=== PATIENT | female | born 1945 | race Caucasian/White ===

== ENCOUNTER 2019-05-29 11:17 | Outpatient (CLI) | payer MEDICARE ==
--- NOTE | 2019-05-29 11:44 | RAD ---
Radiograph left elbow 4 views: DATE: 05/29/2019 HISTORY: 74-year-old female with ICD-10: S 50.0 2XA, contusion of left elbow, interstitial encounter. FINDINGS: Diffuse osteopenia. Positive anterior and posterior fat pad signs. No dislocation. No high-grade DJD. No displaced fracture identified. IMPRESSION: 1. No fracture identified, but distention of the joint capsule raises the possibility of occult fract ure. Consider noncontrast CT of elbow. 2. Osteopenia. 3. No other osseous abnormality identified.
== END 2019-05-29 11:18 | disposition home or self-care (01) ==
LOC: BURRAD 11:17
PROVIDERS: ATTEND Nurse Practitioner
DX: S50.02XA Contusion of left elbow, initial encounter (principal); M85.822 Other specified disorders of bone density and structure, left upper arm

== ENCOUNTER 2020-04-27 16:32 | Emergency (ER) | payer MEDICARE ==
[2020-04-27 17:23] LABS: #Lymphocytes 1.8 thou/uL (1.20-3.40); #Monocytes 0.4 thou/uL (0.11-0.59); %Basophils 0.7 % (0.0-1.0); %Eosinophils 0.6 % (0.0-10.0); %Lymphocytes 24.1 % (21.0-51.0); %Monocytes 5.7 % (0.0-10.0); %Neutrophils 68.9 % (42.0-75.0); Hemoglobin 12.6 g/dL (12.0-16.0); Mean Corpuscular HGB CONC 30.7 g/dL (32.0-36.0); Mean Corpuscular Hemoglobin 26.9 pg (27.0-31.0); Mean Corpuscular Volume 87.7 fL (78.0-98.0); Mean Platelet Volume 6.5 fL (7.4-10.4); Platelet Count 230 thou/uL (130-400); RBC Distribution Width 12.9 % (11.5-14.5); Red Blood Cell (RBC) Count 4.69 mill/uL (4.20-5.40); White Blood Cell (WBC) Count 7.2 thou/uL (4.8-10.8)
[2020-04-27] MEDS ORDERED: Amlodipine 5 MG TAB ONE (17:31)
[2020-04-27] MEDS ORDERED: Lisinopril 20 MG TAB ONE (17:31)
[2020-04-27 17:36] LABS: ALT (SGPT) 12 U/L (8-55); AST (SGOT) 11 U/L (5-34); Albumin 4.3 g/dL (3.4-4.8); Alkaline Phosphatase 67 U/L (40-110); Anion Gap 16 mmol/L (10-20); BUN (Urea Nitrogen) 14 mg/dL (9.8-20.1); Bilirubin, Total 0.6 mg/dL (0.2-1.2); Calc. Creatinine Clearance 0 mL/min (70-130); Calcium 9.5 mg/dL (7.8-10.44); Carbon Dioxide 22 mmol/L (23-31); Chloride 107 mmol/L (98-107); Estimated GFR-MDRD 57; Globulin 3.3 g/dL (2.4-3.5); Glucose 96 mg/dL (83-110); Potassium 3.8 mmol/L (3.5-5.1); Protein, Total 7.6 g/dL (6.0-8.3); Sodium 141 mmol/L (136-145)
[2020-04-27] MEDS ORDERED: Amlodipine 5 MG TAB PO SCH (17:45)
--- NOTE | 2020-04-28 04:56 | RAD ---
LEFT LEG TWO VIEWS: 04/27/20 FINDINGS: No fracture or periosteal reaction is seen. No bony destructive lesion is apparent. IMPRESSION: No significant findings. POS: HOME
== END 2020-04-27 18:40 | disposition home or self-care (01) ==
LOC: BURERS 16:32
DX: I10 Essential (primary) hypertension (principal); M79.662 Pain in left lower leg
CPT/HCPCS: 36415; 80053; 84484; 85025

== ENCOUNTER 2020-05-19 01:07 | Emergency (ER) | payer MEDICARE ==
[2020-05-19 01:00] LABS: ALT (SGPT) 12 U/L (8-55); AST (SGOT) 10 U/L (5-34); Albumin 4.7 g/dL (3.4-4.8); Alkaline Phosphatase 65 U/L (40-110); Anion Gap 18 mmol/L (10-20); BUN (Urea Nitrogen) 71 mg/dL (9.8-20.1); Bilirubin, Total 0.5 mg/dL (0.2-1.2); Calc. Creatinine Clearance 0 mL/min (70-130); Calcium 10.4 mg/dL (7.8-10.44); Carbon Dioxide 22 mmol/L (23-31); Chloride 102 mmol/L (98-107); Estimated GFR-MDRD 24; Globulin 3.7 g/dL (2.4-3.5); Glucose 162 mg/dL (83-110); Lipase 51 U/L (8-78); Potassium 4.3 mmol/L (3.5-5.1); Protein, Total 8.4 g/dL (6.0-8.3); Sodium 138 mmol/L (136-145)
[2020-05-19 01:19] LABS: Bilirubin Negative (Negative); Blood, Urine Trace (Negative); Clarity Cloudy (Clear); Glucose, Urine (Dipstick) Negative (Negative); Ketone, Urine Trace mg/dL (Negative); Leukocyte Large (Negative); Nitrite Negative (Negative); Protein, Urine (Dipstick) Negative (Neg-Trace); Specific Gravity, Urine 1.025 (1.005-1.030); Urobilinogen 0.2 mg/dL (Less than 2)
[2020-05-19 01:23] LABS: Bacteria/HPF 4+ HPF (None Seen); Squamous Epithelial 0-3 HPF (0-3); WBC/HPF 21-50 HPF (0-3)
[2020-05-19] MEDS ORDERED: Aspirin Chewable 81 MG TAB ONE (01:38)
[2020-05-19 01:48] LABS: #Basophils 0.1 thou/uL (0.0-0.2); #Monocytes 0.5 thou/uL (0.11-0.59); #Neutrophils 9.3 thou/uL (1.40-6.50); %Basophils 0.5 % (0.0-1.0); %Eosinophils 0.2 % (0.0-10.0); %Lymphocytes 9.6 % (21.0-51.0); %Monocytes 4.1 % (0.0-10.0); %Neutrophils 85.6 % (42.0-75.0); Hemoglobin 13.4 g/dL (12.0-16.0); Mean Corpuscular HGB CONC 31.7 g/dL (32.0-36.0); Mean Corpuscular Hemoglobin 27.4 pg (27.0-31.0); Mean Corpuscular Volume 86.4 fL (78.0-98.0); Mean Platelet Volume 7.8 fL (7.4-10.4); Platelet Count 237 thou/uL (130-400); RBC Distribution Width 13.4 % (11.5-14.5); Red Blood Cell (RBC) Count 4.89 mill/uL (4.20-5.40); White Blood Cell (WBC) Count 10.8 thou/uL (4.8-10.8)
[2020-05-19] MEDS ORDERED: Nitrofurantoin Monohyd/M-Cryst 100 MG CAP ONE (02:28)
[2020-05-19 03:32] LABS: Troponin I 0.019 ng/mL (< 0.028)
[2020-05-19 03:43] LABS: CKMB 2.4 ng/mL (0-6.6)
--- NOTE | 2020-05-19 11:53 | RAD ---
AP PORTABLE CHEST: 05/19/20 0138 HOURS COMPARISON: 01/05/2015 FINDINGS: The heart is normal in size and the lungs are clear. No infiltrate or effusion is seen. There is no v ascular congestion or edema. IMPRESSION: No acute thoracic findings. POS: HOME
== END 2020-05-19 04:34 | disposition home or self-care (01) ==
LOC: BURERS 01:07
DX: R07.89 Other chest pain (principal); N39.0 Urinary tract infection, site not specified; R11.2 Nausea with vomiting, unspecified; I10 Essential (primary) hypertension; Z79.899 Other long term (current) drug therapy
CPT/HCPCS: 36415; 71045; 80053; 81003; 81015; 82553; 83690; 84484; 85025; 93005; 94760

== ENCOUNTER 2020-06-01 19:05 | Emergency (ER) | payer MEDICARE | END 2020-06-01 19:45 | disposition home or self-care (01) | LOC: BURERS 19:05 | DX: R11.10 Vomiting, unspecified (principal); F43.20 Adjustment disorder, unspecified; I10 Essential (primary) hypertension; Z79.899 Other long term (current) drug therapy | CPT/HCPCS: 99284 ==

== ENCOUNTER 2020-06-04 11:17 | Outpatient (CLI) | payer MEDICARE ==
[2020-06-04] MEDS ORDERED: Iopamidol 370 76% 100 ML VIAL ONE (12:49)
--- NOTE | 2020-06-04 14:54 | CT ---
CT OF THE ABDOMEN AND PELVIS WITH IV CONTRAST: INDICATION: Left upper quadrant abdominal pain. COMPARISON: CTA aortic dissection protocol dated 01/06/2015. FINDINGS: Lung bases are clear. There is some contrast within the distal esophagus. There is a small hiatal h ernia. The liver, pancreas, adrenal glands, and spleen appear within normal limits. No focal renal lesion i s evident. There are mild to moderate vascular calcifications involving the abdominopelvic vasculatu re. There are mild to moderate vascular calcifications involving the abdominopelvic vasculature. No enlarged lymph nodes or free fluid is evident. Reproductive structures, bladder, rectum, and perirectal soft tissues are unremarkable-appearing. There is scattered diverticula involving the colon without evidence of active diverticulitis. The appendix is not definitely seen. There is diffuse osteopenia. There is scattered degenerative and osteoarthritic change. There is le voscoliosis of the lumbar spine. There is a benign hemangioma within the left aspect of T12. There is a compression abnormality of T11 which has progressed in loss of height from the prior exam, now m ild to moderate where it was mild in 2015. IMPRESSION: 1. No CT explanation for the patient's abdominal pain. 2. Small hiatal hernia with mild reflux versus dysmotility. 3. Colonic diverticulosis. 4. Mild interval loss of height involving the chronic wedge compression abnormality of T11. POS: [facility]
== END 2020-06-04 11:18 | disposition home or self-care (01) ==
LOC: BURCT 11:17
PROVIDERS: ATTEND Nurse Practitioner
DX: R10.11 Right upper quadrant pain (principal); K57.30 Diverticulosis of large intestine without perforation or abscess without bleeding; K44.9 Diaphragmatic hernia without obstruction or gangrene
CPT/HCPCS: 74177; Q9967

== ENCOUNTER 2021-04-28 10:22 | Outpatient (CLI) | payer MEDICARE | END 2021-04-28 10:23 | disposition home or self-care (01) | LOC: BURRAD 10:22 | PROVIDERS: ATTEND Nurse Practitioner | DX: S93.601A Unspecified sprain of right foot, initial encounter (principal) ==

== ENCOUNTER 2022-04-29 10:31 | Emergency (ER) | payer MEDICARE ==
[2022-04-29] MEDS ORDERED: Iopamidol 370 76% 100 ML VIAL FS ONE (10:32)
[2022-04-29 11:13] LABS: #Basophils 0.1 thou/uL (0.0-0.2); #Monocytes 0.6 thou/uL (0.11-0.59); #Neutrophils 9.5 thou/uL (1.40-6.50); %Basophils 0.6 % (0.0-1.0); %Eosinophils 0.3 % (0.0-10.0); %Lymphocytes 16.6 % (21.0-51.0); %Monocytes 4.8 % (0.0-10.0); %Neutrophils 77.7 % (42.0-75.0); Hemoglobin 14.7 g/dL (12.0-16.0); Mean Corpuscular HGB CONC 32.7 g/dL (32.0-36.0); Mean Corpuscular Hemoglobin 27.8 pg (27.0-31.0); Mean Corpuscular Volume 84.9 fL (78.0-98.0); Mean Platelet Volume 7.4 fL (7.4-10.4); Platelet Count 278 thou/uL (130-400); RBC Distribution Width 13.2 % (11.5-14.5); Red Blood Cell (RBC) Count 5.28 mill/uL (4.20-5.40); White Blood Cell (WBC) Count 12.2 thou/uL (4.8-10.8)
[2022-04-29] MEDS ORDERED: Morphine 4 MG/ML VIAL ONE (11:26)
[2022-04-29] MEDS ORDERED: Ondansetron PF 4 MG/2 ML Vial ONE (11:26)
[2022-04-29 11:34] LABS: ALT (SGPT) 9 U/L (8-55); AST (SGOT) 13 U/L (5-34); Albumin 4.4 g/dL (3.4-4.8); Alkaline Phosphatase 82 U/L (40-110); Anion Gap 17 mmol/L (10-20); BUN (Urea Nitrogen) 20 mg/dL (9.8-20.1); Bilirubin, Total 0.8 mg/dL (0.2-1.2); Calc. Creatinine Clearance 0 mL/min (70-130); Calcium 10.2 mg/dL (7.8-10.44); Carbon Dioxide 23 mmol/L (23-31); Chloride 106 mmol/L (98-107); Estimated GFR 40; Globulin 3.5 g/dL (2.4-3.5); Glucose 124 mg/dL (83-110); Lipase 25 U/L (8-78); Potassium 3.5 mmol/L (3.5-5.1); Protein, Total 7.9 g/dL (5.8-8.1); Sodium 142 mmol/L (136-145)
[2022-04-29 13:22] LABS: Bilirubin Negative (Negative); Blood, Urine Negative (Negative); Clarity Slightly Cloudy (Clear); Glucose, Urine (Dipstick) Negative (Negative); Ketone, Urine Negative (Negative); Leukocyte Moderate (Negative); Nitrite Negative (Negative); Protein, Urine (Dipstick) Negative (Neg-Trace); Specific Gravity, Urine 1.015 (1.005-1.030); Urobilinogen 0.2 mg/dL (Less than 2); pH, Urine 5.5 (5.0-9.0)
[2022-04-29 13:34] LABS: Bacteria/HPF 1+ HPF (None Seen); RBC/HPF None Seen HPF (0-3); Squamous Epithelial 0-3 HPF (0-3); Transitional Epithelial 0-3 HPF (None Seen)
[2022-04-29 13:36] LABS: WBC/HPF 21-50 HPF (0-3)
[2022-04-29] MEDS ORDERED: Sodium Chloride 0.9% 100 ML ONE (13:53)
[2022-04-29] MEDS ORDERED: cefTRIAXone\\ROCEPHIN 1 GM VIAL ONE (13:53)
== END 2022-04-29 14:45 | disposition home or self-care (01) ==
LOC: BURERS 10:31
DX: N39.0 Urinary tract infection, site not specified (principal); I10 Essential (primary) hypertension; Z79.899 Other long term (current) drug therapy
CPT/HCPCS: 71275; 74174; 80053; 81003; 81015; 83690; 84484; 85025; 93005; 96365; 96375; J0696; J2270; J2405; J3490; Q9967

== ENCOUNTER 2022-05-09 15:43 | Emergency (ER) | payer MEDICARE ==
[2022-05-09] MEDS ORDERED: Iopamidol 370 76% 100 ML VIAL FS ONE (15:44)
[2022-05-09 16:17] LABS: #Eosinphils 0.1 thou/uL (0.0-0.7); #Lymphocytes 1.9 thou/uL (1.20-3.40); #Monocytes 0.3 thou/uL (0.11-0.59); #Neutrophils 5.1 thou/uL (1.40-6.50); %Basophils 0.6 % (0.0-1.0); %Lymphocytes 25.4 % (21.0-51.0); %Monocytes 4.5 % (0.0-10.0); %Neutrophils 68.5 % (42.0-75.0); Hemoglobin 13.8 g/dL (12.0-16.0); Mean Corpuscular HGB CONC 31.4 g/dL (32.0-36.0); Mean Corpuscular Hemoglobin 27.4 pg (27.0-31.0); Mean Corpuscular Volume 87.4 fL (78.0-98.0); Mean Platelet Volume 7.3 fL (7.4-10.4); Platelet Count 289 thou/uL (130-400); RBC Distribution Width 13.6 % (11.5-14.5); Red Blood Cell (RBC) Count 5.04 mill/uL (4.20-5.40); White Blood Cell (WBC) Count 7.4 thou/uL (4.8-10.8)
[2022-05-09] MEDS ORDERED: hydrALAZINE 20 MG/ML VIAL ONE ×3 (16:22→18:42)
[2022-05-09] MEDS ORDERED: Ketorolac Tromethamine 30 MG/ML VIAL ONE (16:22)
[2022-05-09 16:33] LABS: ALT (SGPT) 13 U/L (8-55); AST (SGOT) 15 U/L (5-34); Albumin 4.6 g/dL (3.4-4.8); Alkaline Phosphatase 63 U/L (40-110); Anion Gap 16 mmol/L (10-20); BUN (Urea Nitrogen) 18 mg/dL (9.8-20.1); Bilirubin, Total 0.7 mg/dL (0.2-1.2); Calc. Creatinine Clearance 0 mL/min (70-130); Calcium 10.1 mg/dL (7.8-10.44); Carbon Dioxide 23 mmol/L (23-31); Chloride 105 mmol/L (98-107); Estimated GFR 46; Globulin 3.4 g/dL (2.4-3.5); Glucose 93 mg/dL (83-110); Potassium 3.2 mmol/L (3.5-5.1); Sodium 141 mmol/L (136-145)
[2022-05-09] MEDS ORDERED: Potassium Chloride 20 MEQ TAB ONE (16:51)
[2022-05-09 17:21] LABS: Bilirubin Small (Negative); Blood, Urine Trace (Negative); Clarity Cloudy (Clear); Glucose, Urine (Dipstick) Negative (Negative); Ketone, Urine 15 mg/dL (Negative); Leukocyte Moderate (Negative); Nitrite Negative (Negative); Protein, Urine (Dipstick) 100 mg/dL (Neg-Trace); pH, Urine 5.5 (5.0-9.0)
[2022-05-09 17:23] LABS: Specific Gravity, Urine 1.023 (1.002-1.036)
[2022-05-09 17:30] LABS: RBC/HPF 0-3 HPF (0-3); Renal Epithelial 0-3 HPF (None Seen); WBC/HPF Greater Than 50 HPF (0-3)
[2022-05-09 17:31] LABS: Bacteria/HPF 3+ HPF (None Seen)
[2022-05-09] MEDS ORDERED: Ciprofloxacin 500 MG TAB ONE (17:41)
[2022-05-09] MEDS ORDERED: cefTRIAXone\\ROCEPHIN 1 GM VIAL ONE (17:41)
[2022-05-09] MEDS ORDERED: Aspirin Chewable 81 MG TAB ONE (18:42)
[2022-05-09] MEDS ORDERED: Promethazine HCl 25 MG/ML VIAL ONE (19:10)
== END 2022-05-09 22:45 | disposition short-term general hospital (02) ==
LOC: BURERS 15:43
DX: N39.0 Urinary tract infection, site not specified (principal); E87.6 Hypokalemia; I10 Essential (primary) hypertension; Z79.899 Other long term (current) drug therapy
CPT/HCPCS: 36415; 70450; 74177; 80053; 81003; 81015; 83605; 83880; 84484; 85025; 87040; 87086; 93005; 96361; 96374; 96375; 96376; J0360; J0696; J1885; J2550; Q9967

== ENCOUNTER 2022-09-29 11:45 | Emergency (ER) | payer MEDICARE ==
[2022-09-29] MEDS ORDERED: cefTRIAXone\\ROCEPHIN 1 GM VIAL ONE (13:44)
[2022-09-29] MEDS ORDERED: Lidocaine 1% PF 5 ML VIAL ONE (13:44)
[2022-09-29 13:56] LABS: #Basophils 0.1 thou/uL (0.0-0.2); #Eosinphils 0.2 thou/uL (0.0-0.7); #Monocytes 0.3 thou/uL (0.11-0.59); #Neutrophils 6.4 thou/uL (1.40-6.50); %Basophils 0.8 % (0.0-1.0); %Eosinophils 1.9 % (0.0-10.0); %Lymphocytes 22.5 % (21.0-51.0); %Monocytes 3.6 % (0.0-10.0); %Neutrophils 71.2 % (42.0-75.0); Hemoglobin 12.9 g/dL (12.0-16.0); Mean Corpuscular HGB CONC 33.4 g/dL (32.0-36.0); Mean Corpuscular Hemoglobin 28.6 pg (27.0-31.0); Mean Corpuscular Volume 85.6 fl (78.0-98.0); Mean Platelet Volume 6.6 fL (7.4-10.4); Platelet Count 291 10x3/uL (130-400); RBC Distribution Width 13.7 % (11.5-14.5); Red Blood Cell (RBC) Count 4.51 mill/uL (4.20-5.40); White Blood Cell (WBC) Count 9.1 10x3/uL (4.8-10.8)
[2022-09-29 14:13] LABS: ALT (SGPT) 14 U/L (8-55); AST (SGOT) 15 U/L (5-34); Albumin 4.9 g/dL (3.4-4.8); Alkaline Phosphatase 89 U/L (40-110); Anion Gap 12 mmol/L (10-20); BUN (Urea Nitrogen) 17 mg/dL (9.8-20.1); Bilirubin, Total 0.3 mg/dL (0.2-1.2); Calc. Creatinine Clearance 0 mL/min (70-130); Calcium 10.5 mg/dL (7.8-10.44); Carbon Dioxide 23 mmol/L (23-31); Chloride 111 mmol/L (98-107); Estimated GFR 54; Globulin 3.8 g/dL (2.4-3.5); Glucose 107 mg/dL (83-110); Potassium 3.7 mmol/L (3.5-5.1); Protein, Total 8.7 g/dL (5.8-8.1); Sodium 142 mmol/L (136-145)
== END 2022-09-29 14:00 | disposition home or self-care (01) ==
LOC: BURERS 11:45
DX: M54.6 Pain in thoracic spine (principal); I10 Essential (primary) hypertension
CPT/HCPCS: 36415; 71046; 80053; 85025; 96372; J0696